=== PATIENT | female | born 1985 | race Caucasian/White ===

== ENCOUNTER 2016-10-09 22:09 | Emergency (ER) | payer OTHER ==
[~2016-10-09] VITALS: Ht 167.6 cm; Wt 58.0 kg
[~2016-10-09 22:09] MED LIST: NO MEDS; PENICILLN VK500 MG OR; PRENATA4 OR; TUBERSOL5 MG/0.1 M ID; ULTRAM50 MG OR
[2016-10-09] MEDS ORDERED: ULTRAM50 M1 PO (23:33)
[2016-10-09 23:59] VITALS: BP 132/77
== END 2016-10-09 23:56 | disposition home or self-care (01) | DRG 563 ==
LOC: ED 22:09
PROC: 2W3CX1Z Immobilization of Right Lower Arm using Splint (ICD-10-PCS; principal; 2016-10-09)
DX: S52.501A Unspecified fracture of the lower end of right radius, initial encounter for closed fracture (principal); F17.210 Nicotine dependence, cigarettes, uncomplicated; S13.9XXA Sprain of joints and ligaments of unspecified parts of neck, initial encounter; V58.6XXA Passenger in pick-up truck or van injured in noncollision transport accident in traffic accident, initial encounter

== ENCOUNTER 2020-04-08 18:58 | Emergency (ER) | payer SELFPAY ==
[~2020-04-08] VITALS: Ht 172.7 cm; Wt 68.1 kg
[~2020-04-08 18:58] MED LIST changes: +ULTRAM50 M1 PO
[2020-04-08] MEDS ORDERED: CLINDAMYCIN300 M1 PO (19:54)
[2020-04-08 19:57] VITALS: BP 124/77
== END 2020-04-08 20:03 | disposition home or self-care (01) | DRG 159 ==
LOC: ED 18:58
DX: K04.7 Periapical abscess without sinus (principal); K02.9 Dental caries, unspecified; F17.210 Nicotine dependence, cigarettes, uncomplicated